=== PATIENT | male | born 1940 | race Caucasian/White ===

== ENCOUNTER 2016-11-18 06:08 | Day surgery (SDC) | payer MEDICARE, BC ==
[2016-11-12 14:07] LABS: HEMATOCRIT 44.1 % (40.0-51.0); HEMOGLOBIN 14.2 g/dL (13.6-17.8)
--- NOTE | ~2016-11-18 | OP ---
Record Of Operation [facility] [address] [place]. 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 POSTOPERATIVE DIAGNOSIS: Bilateral true vocal cord dysplasia. PROCEDURE: Microdirect laryngoscopy with CO2 laser excision of bilateral true vocal cord dysplasia. SURGEON: Jhonathan Dozier M.D. ANESTHESIA: General. COMPLICATIONS: None. COUNTS: All counts correct following the procedure. ESTIMATED BLOOD LOSS: Minimal. PREOPERATIVE INFORMED CONSENT: We discussed the risks and benefits of the surgery to include, but not limited to bleeding, infection, possible recurrence of the dysplasia, possible postoperative hoarseness which could be temporary or permanent, possible airway fire. He understands the risks and benefits of surgery and consent is on the signed chart. PROCEDURE IN DETAIL: The patient was brought to the operating suite and placed on the operating table in the supine position. General endotracheal anesthesia was initiated without incident. The patient's head and neck were cleaned, prepped, and draped in the usual sterile fashion. Following this, moistened eye pads were placed on the patient's eyes as well as moistened towels. A Dedo laryngoscope after placing a bite guard on the upper teeth was placed in the oral cavity and oropharynx into the supraglottic larynx just above the vocal cords and the patient was suspended from the Gonzalez stand. A 0-degree Tucker erica was used to take pictures of the vocal cords. 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 There was also involvement of the anterior commissure and there was a small lesion of the left true vocal cord. Then, using CO2 laser set at 5 dick, an incision was made along the superior lateral aspect of the right vocal cord. Then, using a sickle knife, micro flap was created. There was lot of scarring from previous surgeries making dissection difficult but careful dissection technique was used to dissect the dysplasia off the entire right vocal cord. The flap was then released using micro laryngeal scissors. Specimen was then sent for permanent pathology. Bleeding was controlled using topical Adrenalin. The left vocal cord lesion was removed using cup forceps and micro laryngeal scissors. The anterior commissure was also removed using cup forceps and micro laryngeal scissors, and the base of the all 3 lesions were cauterized using CO2 laser to assure that all areas were completely removed. Bleeding was again controlled using topical adrenaline pledgets. The patient was awakened from anesthesia and taken to recovery room in stable condition. Record Of Operation [address] [address] NAME: JEANETH HERNANDEZ : 38 STATUS : [facility] PAT#: [id number] AGE: 76 ADM/REG DATE : 11/18/16 MR#: [id number] REPORT SERV DATE: 11/18/16 DICTATED BY: JHONATHAN DOZIER DATE: 11/18/16 REPORT STATUS : Draft TRANSCRIBED BY: RANDY DATE: 11/18/16 SWETHA/RANDY Jhonathan Dozier M.D. / [id number] CC: Babak Swain M.D.
[~2016-11-18 06:08] MED LIST: ALEVE220 MG PO; C25 PO; LORT7 PO; NORCO1 TA1 PO; NORCO1 TA2 PO; PCET PO; ULTRAM50 PO; VITAMIN B-121000 MC1 SL; [UNRECOGNIZED DRUG - OTHER] PO
== END 2016-11-18 11:53 | disposition home or self-care (01) ==
LOC: SDC 06:08
PROVIDERS: Otolaryngology
PROC: 0CBT8ZZ Excision of Right Vocal Cord, Via Natural or Artificial Opening Endoscopic (ICD-10-PCS; 2016-11-18)
PROC: 0CBV8ZZ Excision of Left Vocal Cord, Via Natural or Artificial Opening Endoscopic (ICD-10-PCS; principal; 2016-11-18 08:30)
DX: J38.3 Other diseases of vocal cords (principal); K21.9 Gastro-esophageal reflux disease without esophagitis; M19.90 Unspecified osteoarthritis, unspecified site; Z98.890 Other specified postprocedural states; Z79.899 Other long term (current) drug therapy; Z87.891 Personal history of nicotine dependence; Z90.49 Acquired absence of other specified parts of digestive tract
CPT/HCPCS: 85014; 85018; 88305; 93005; J2370; J2405; J2710; J3010